=== PATIENT | female | born 1995 | race Caucasian/White ===

== ENCOUNTER 2016-09-27 09:58 | Emergency (ER) | payer OTHER ==
--- NOTE | 2016-09-27 11:35 | UC ---
UC General HPI - HPI Summary HPI Summary: patient is recovering from the Flu has had increased right ear pain and is having muscl spasm from the right shoulder to the bottom of the right rib cage. denies fever. - History of Current Complaint Chief Complaint: UCGeneralIllness Stated Complaint: EAR ACHE Time Seen by Provider: 09/27/16 10:55 Hx Obtained From: Patient Onset/Duration: Gradual Onset, Still Present Timing: Constant Onset Severity: Moderate Current Severity: None Pain Intensity: 0 Pain Radiates to: shoulder to ribs Associated Signs & Symptoms: Positive: Back Pain - Allergy/Home Medications Allergies/Adverse Reactions: Allergies Allergy/AdvReac Type Severity Reaction Status Date / Time Penicillins Allergy Unknown Verified 09/27/16 10:21 Reaction Details PMH/Surg Hx/FS Hx/Imm Hx Previously Healthy: Yes - Surgical History Surgical History: None - Family History Known Family History: Negative: Cardiac Disease, Hypertension - Social History Alcohol Use: Occasionally Substance Use Type: None Smoking Status (MU): Never Smoked Tobacco Review of Systems Constitutional: Fatigue Skin: Negative Eyes: Negative ENT: Ear Ache - right Respiratory: Cough Cardiovascular: Negative Gastrointestinal: Negative Genitourinary: Negative Motor: Negative Neurovascular: Negative Musculoskeletal: Decreased ROM - shoulder, right, Myalgia - upper right back Neurological: Negative Psychological: Negative All Other Systems Reviewed And Are Negative: Yes Physical Exam Triage Information Reviewed: Yes Appearance: Well-Nourished, Ill-Appearing, Pain Distress Vital Signs: Initial Vital Signs Temp 98.1 F 09/27/16 10:22 Pulse 81 09/27/16 10:22 Resp 16 09/27/16 10:22 BP 118/81 09/27/16 10:22 Pulse Ox 98 09/27/16 10:22 Vital Signs Reviewed: Yes Eye Exam: Normal Eyes: Positive: Conjunctiva Clear ENT: Positive: Hearing grossly normal, Pharyngeal erythema, Nasal congestion, TM bulging, TM red - right Dental Exam: Normal Neck exam: Normal Neck: Positive: Supple, Nontender, Enlarged Nodes @ - left cervical Respiratory Exam: Normal Respiratory: Positive: Chest non-tender, Lungs clear, Normal breath sounds Cardiovascular Exam: Normal Cardiovascular: Positive: RRR, No Murmur, Pulses Normal Abdominal Exam: Normal Abdomen Description: Positive: Nontender, No Organomegaly, Soft Bowel Sounds: Positive: Present Musculoskeletal: Positive: Strength Intact, No Edema, Other: - pain with shoulder movement in the right trapezius, palpable hypertonicity Neurological Exam: Normal Neurological: Positive: Alert, Muscle Tone Normal Psychological Exam: Normal Skin Exam: Normal Course/Dx - Course Course Of Treatment: hx obtained, exam performed, prednisone prescribed for inflammation of the throat and ears. felxeril given for shulder spams, educated on gentle stretching and heat use. - Differential Dx - Multi-Symptom Provider Diagnoses: muscle spasm of back. right ear pain. nasal congestion. phayingitis Discharge - Discharge Plan Condition: Stable Disposition: HOME Prescriptions: Cyclobenzaprine TAB* [Flexeril TAB*] 10 mg PO BEDTIME #10 tab predniSONE TAB* [Deltasone TAB*] 40 mg PO DAILY #10 tab Patient Education Materials: Muscle Spasm (ED) Referrals: No Primary Care Phys,NOPCP [Primary Care Provider] - Additional Instructions: I am treating you for back spams with flexeril and I also recommend gentle stretching and heat. I am prescribing prednisone for the inflammation in your ear, nose and throat. take as prescribed. Follow up with any worsening symptoms.
== END 2016-09-27 11:08 | disposition home or self-care (01) ==
LOC: UCEAST 09:58
DX: H92.01 Otalgia, right ear (principal); R09.81 Nasal congestion; J02.9 Acute pharyngitis, unspecified; M62.830 Muscle spasm of back; Z88.0 Allergy status to penicillin
CPT/HCPCS: 99212; G0463